=== PATIENT | male | born 1990 | race Caucasian/White ===

== ENCOUNTER 2020-01-01 17:59 | Emergency (ER) | payer OTHER ==
[~2020-01-01] VITALS: Ht 175.3 cm; Wt 72.6 kg
[2020-01-01 17:59] VITALS: BP 153/86
[~2020-01-01 17:59] MED LIST: REMERON15 MG
== END 2020-01-01 18:01 | disposition left against medical advice (07) ==
LOC: ER 17:59
DX: T40.3X1A Poisoning by methadone, accidental (unintentional), initial encounter (principal); R40.20 Unspecified coma; R45.1 Restlessness and agitation; Y92.89 Other specified places as the place of occurrence of the external cause; F32.9 Major depressive disorder, single episode, unspecified

== ENCOUNTER 2020-11-10 19:26 | Emergency (ER) | payer OTHER ==
[~2020-11-10] VITALS: Ht 175.3 cm; Wt 72.6 kg
--- NOTE | ~2020-11-10 | EMS ---
[place] [address] EMS Patient Care Report Name: VERA COBB Room #: REG SULMA Kaminski#: [id number] Admission: 11/10/20 Attend Phys: Discharge: Date of : [birth year] Report #: [id number] THIS REPORT FOR: //name// Report Transmitted: 11/10/2020 19:36 EMS Care Summary [place], [place]/[facility] Incident [id number] @ 11/10/2020 18:53 Incident Location [address] [place] [address] Patient YVES COBB Male, 30 Years 1990 Patient Address [address] [place] [address] Patient History Congestive Heart Failure (CHF),IV Drug Use/Abuse, Patient Allergies No known allergies, Patient Medications Suboxone, Chief Complaint overdose Disposition Transported No Lights/[place] Dispatch Reason Cardiac Arrest/ Transported To [facility] Narrative M36 dispatched on a cardiac arrest. M36 arrived to home to find P37 and PD on scene with PT. Family on scene stated they gave PT a total of two 4 mg doses of narcan intranasally. Family stated PT overdosed on heroin as chief complaint. PT alert and oriented x4. PT stood and took steps to stretcher. [place] [address] EMS Patient Care Report Name: VERA COBB Room #: REG SULMA Kaminski#: [id number] Admission: 11/10/20 Attend Phys: Discharge: Date of : [birth year] Report #: [id number] seatbelts. PT stated additional complaints of headache, nausea and vomiting. PT provided emesis bucket. PT covered with blanket. IV access obtained by commissary superintendent Stalker. PT left forearm had scarring and open punctures to veins. PT stated history of "we used two narcans when I last used about two weeks ago." PT stated he took his normal amount. PT stated he got COVID vaccine about two months prior. PT vitals monitored during transport. PT report given. PT scooted self over to hospital bed. PT care and belongings transferred to ER staff at [facility] without incident. M36 placed back in service. Initial Vitals @19:05P: 90,R: 18,BP: 128/90,Pain: 8/10,GCS: 15,Glucose: 155,CO: 10,SpO2: 100,Revised Trauma: 12, @19:12P: 70,R: 20,BP: 142/98,Pain: 8/10,GCS: 15,CO: 9,SpO2: 100,Revised Trauma: 12, Assessments @19:14MENTAL:Event Oriented,Time Oriented,Person Oriented,Place Oriented,SKIN:Pale,HEENT:Eyes: Left: Constricted,Eyes: Right: Constricted,LUNG SOUNDS:General: Nausea,General: Vomiting,ABDOMEN:General: Nausea,General: Vomiting,PELVIS//GI:EXTREMITIES:PULSE:Radial: 2+ Normal,NEURO:Slurred Speech, Impression Overdose - Heroin Procedures @19:14ALS AssessmentResponse: UnchangedSucceeded@PTANarcan - 4 Milligrams (mg) - IntranasalResponse: Improved@PTANarcan - 4 Milligrams (mg) - IntranasalResponse: Improved@PTAOxygen FlowRate: 2 Device: Nasal Cannula (NC) Response: UnchangedSucceeded@19:18Saline Lock 10cc (20 ga) Site: Antecubital-LeftResponse: UnchangedSucceeded Timeline RADIO TESTER,Narcan - 4 Milligrams (mg) - Intranasal,Response: Improved RADIO TESTER,Narcan - 4 Milligrams (mg) - Intranasal,Response: Improved RADIO TESTER,Oxygen FlowRate: 2 Device: Nasal Cannula (NC) Response: UnchangedSucceeded, 18:52,Call Received 18:52,Dispatch Notified 18:53,Dispatched 18:54,En Route 19:00,On Scene 19:00,At Patient 19:05,BP: 128/90 M,PULSE: 90,RR: 18 R,SPO2: 100 Ox,ETCO2: ,B,PAIN: 8,GCS: 15, 19:12,BP: 142/98 M,PULSE: 70,RR: 20 R,SPO2: 100 Ox,ETCO2: ,BG: ,PAIN: 8,GCS: [address] [address] EMS Patient Care Report Name: VERA COBB Room #: REG FordRJustin#: [id number] Admission: 11/10/20 Attend Phys: Discharge: Date of : [birth year] Report #: [id number] 15, 19:13,Depart Scene 19:14,ALS Assessment,Response: UnchangedSucceeded, 19:18,Saline Lock 10cc 20 ga Site: Antecubital-Left,Response: UnchangedSucceeded, 19:22,At Destination 19:39,Call Closed Disclaimer v1.1 Copyright 2020 [employer] This EMS Care Summary contains data elements from the applicable legal record (which may be displayed differently). It is designed to provide pertinent information for the following purposes: continuity of care, clinical quality, and state data reporting. The complete legal record is available to ED staff and administrators of the receiving hospital in [employer] Patient Tracker. All data is provided "as is."
[2020-11-10 21:21] VITALS: BP 131/78
== END 2020-11-10 21:22 | disposition home or self-care (01) ==
LOC: ER 19:26
DX: T40.1X1A Poisoning by heroin, accidental (unintentional), initial encounter (principal); F32.9 Major depressive disorder, single episode, unspecified; F17.210 Nicotine dependence, cigarettes, uncomplicated; Z79.899 Other long term (current) drug therapy; Y92.89 Other specified places as the place of occurrence of the external cause

== ENCOUNTER 2021-03-29 21:23 | Emergency (ER) | payer OTHER ==
[~2021-03-29] VITALS: Ht 175.3 cm; Wt 77.1 kg
[2021-03-29 22:18] VITALS: BP 128/84
== END 2021-03-29 22:21 | disposition home or self-care (01) ==
LOC: ER 21:23
DX: F11.10 Opioid abuse, uncomplicated (principal); F17.210 Nicotine dependence, cigarettes, uncomplicated